=== PATIENT | female | born 1965 | race Two or more races ===

== ENCOUNTER 2018-02-28 06:52 | Day surgery (SDC) | payer MEDICAID ==
[~2018-02-28] VITALS: Ht 157.5 cm; Wt 54.4 kg
[2018-02-28] MEDS ORDERED: BUPIVACAINE HCL/EPINEPHRINE/PF 0.5%/0.0005 10ML ONE (09:24)
[2018-02-28] MEDS ORDERED: NORMAL SALINE 0.9% 10 ML SYR ONE (09:25)
[2018-02-28] MEDS ORDERED: BACITRACIN 50,000 UNITS/VIAL ONE (09:25)
[2018-02-28] MEDS ORDERED: PROPOFOL 200MG/20ML VIAL IV ONE ×2 (09:28→09:29)
[2018-02-28] MEDS ORDERED: LIDOCAINE HCL/PF 1% 10 MG/ML 5ML VIAL ONE (11:01)
[2018-02-28] MEDS ORDERED: CEFAZOLIN SODIUM 1000MG/VIAL ONE (11:02)
[2018-02-28] MEDS ORDERED: ONDANSETRON HCL 4MG/2ML VIAL IV ONE (11:15)
[2018-02-28] MEDS ORDERED: HYDROCODONE/ACETAMINOPHEN 10/325MG TABLET PO PRN (11:15)
[2018-02-28] MEDS ORDERED: FENTANYL CITRATE/PF 50MCG/ML 2ML VIAL IV PRN (11:15)
== END 2018-02-28 12:30 | disposition home or self-care (01) ==
LOC: OR 06:52
PROVIDERS: ATTEND Orthopaedic Surgery
DX: D17.22 Benign lipomatous neoplasm of skin and subcutaneous tissue of left arm (principal); I10 Essential (primary) hypertension; F17.210 Nicotine dependence, cigarettes, uncomplicated; G47.09 Other insomnia; Z79.899 Other long term (current) drug therapy
CPT/HCPCS: 23073; 88305; A4216; J0171; J0690; J3490; J2704

== ENCOUNTER → 2018-11-07 | Day surgery (SDC) | payer MEDICAID ==
[~2018-11-07] VITALS: Ht 157.5 cm; Wt 56.7 kg
[~2018-11-07] MED LIST: LACTATED RINGERS 1,000 ML IV SCH; LIDOCAINE HCL/PF 1% 10 MG/ML 5ML VIAL ONE; LISI-604 PO; PROPOFOL 200MG/20ML VIAL IV ONE
== END | disposition home or self-care (01) ==
LOC: OR 08:45
PROVIDERS: ATTEND Internal Medicine Gastroenterology
DX: Z12.11 Encounter for screening for malignant neoplasm of colon (principal); Z80.0 Family history of malignant neoplasm of digestive organs; E78.5 Hyperlipidemia, unspecified; I10 Essential (primary) hypertension; Z98.890 Other specified postprocedural states
CPT/HCPCS: G0105; J3490; J2704